=== PATIENT | male | born 1990 | race Caucasian/White ===

== ENCOUNTER 2021-10-07 12:31 | Emergency (ER) | payer SELFPAY ==
--- NOTE | ~2021-10-07 | XR_ITS ---
EXAMINATION: XR chest 2V DATE: 10/07/2021 13:04 INDICATION: New onset chest pain. TECHNIQUE: Frontal and lateral views of the chest were obtained. COMPARISON: None. FINDINGS: There are nodules in left lung measuring up to 15 mm. No pleural effusion or pneumothorax. The heart size is normal. Surgical clips overlie right chest. There is mild anterior wedging of T12 v ertebral body, likely chronic. IMPRESSION: 1. Nodules in left lung measuring up to 15 mm, which may be granulomatous disease or less likely meta static disease. Noncontrast chest CT is recommended. Reviewed, dictated and finalized at location [facility]. IMPRESSION: 1. Nodules in left lung measuring up to 15 mm, which may be granulomatous disea se or less likely metastatic disease. Noncontrast chest CT is recommended.
--- NOTE | ~2021-10-07 | CT_ITS ---
EXAMINATION: CT diagnostic chest wo con DATE: 10/07/2021 15:01 INDICATION: Left lung nodules measuring up to 15 mm TECHNIQUE: Computed tomography (CT) of the chest was performed without intravenous contrast. Automate d exposure control and iterative reconstruction technique were employed. Exam dose: 276.92 mGy-cm to clarisa exam DLP. COMPARISON: 10/07/2021 PA and lateral chest FINDINGS: Calcified left hilar and subcarinal lymph nodes are noted in addition to multiple bilateral calcified pulmonary granulomas, consistent with old pulmonary granulomatous disease. No suspicious pulmonary mass lesion. Postoperative change of the right lung. No pulmonary infiltrate or consolidation. Normal heart size. No pericardial or pleural effusion. No hilar or mediastinal mass lesion or lymphad enopathy. No thoracic aortic aneurysm. Included skeletal structures are unremarkable. 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 Reviewed, dictated and finalized at location [facility].
--- NOTE | ~2021-10-07 | US_ITS ---
US right upper quadrant DATE: 10/07/2021 14:43 INDICATION: Right upper quadrant abdominal pain TECHNIQUE: Real-time imaging of liver, gallbladder fossa, pancreas COMPARISON: None FINDINGS: The pancreatic head, neck and proximal body. Remainder of the pancreas is obscured. No hepatic space-occupying mass lesion is evident. Normal hepatopedal portal venous flow direction. The common bile duct measures 3 mm,. The gallbladder is not visualized. The patient believes he had a cholecystectomy. IMPRESSION: Limited visualization of pancreas Gallbladder is not utilized, likely due to cholecystectomy Reviewed, dictated and finalized at [facility]. Reviewed, dictated and finalized at location [facility].
[2021-10-07 12:35] VITALS: BP 163/94; PULSE 91; RESP 16; TEMP 37.2; O2SAT 97
--- NOTE | 2021-10-07 12:40 | ECG_ITS ---
Measurements Intervals [place] Rate: 88 P: 59 WA: 130 QRS: 69 QRSD: 78 T: 45 QT: 346 QTc: 420 Interpretive Statements SINUS RHYTHM BASELINE ARTIFACT NORMAL ECG NO PREVIOUS ECG AVAILABLE FOR COMPARISON Electronically Signed On 10-08-2021 11:15:55 CDT by Roshan Cortez M.D.
[2021-10-07 12:59] LABS: Basophils Absolute Auto 0.1 K/mm3 (0.0-0.1); Basophils Percent Auto 0.6 % (0.2-1.2); Eosinophils Absolute Auto 0.1 K/mm3 (0-0.3); Eosinophils Percent Auto 0.9 % (0-4.4); Hematocrit 50.9 % (42.0-52.0); Hemoglobin 17.8 g/dL (14.0-18.0); Immature Granulocyte Absolute 0.04 K/mm3 (0.00-0.031); Immature Granulocyte Percent A 0.3 % (0-0.5); Lymphocytes Absolute Auto 3.79 K/mm3 (0.9-3.2); Lymphocytes Percent Auto 27.1 % (18.3-44.2); Mean Corpuscular Hemoglobin 31.1 pg (26-34); Mean Platelet Volume 9.9 fl (7.4-10.4); Monocytes Absolute Auto 0.7 K/mm3 (0.1-0.6); Monocytes Percent Auto 4.8 % (2.6-8.5); Neutrophils Absolute Auto 9.3 K/mm3 (1.3-6.7); Neutrophils Percent Auto 66.3 % (45.5-73.1); Platelet Count Result 413 k/mm3 (150-375); Red Blood Count 5.72 M/mm3 (4.6-6.20); Red Cell Distribution Width 13.8 % (11.5-14.5)
[2021-10-07 13:11] LABS: Alanine Aminotransferase 30 U/L (6-50); Albumin Level 3.8 g/dL (3.5-5.1); Alkaline Phosphatase 68 U/L (38-126); Anion Gap 6 mmol/L (8-16); Aspartate Amino Transferase 28 U/L (17-59); Bilirubin,Total 0.6 mg/dL (0.2-1.3); Blood Urea Nitrogen 12 mg/dL (9-20); Calcium 8.2 mg/dL (8.4-10.2); Carbon Dioxide 24 mmol/L (22-30); Chloride 109 mmol/L (98-107); Estimated CRCL calculation 127 ml/min; Estimated Glomerular Filt Rate > 60; Glucose 168 mg/dL (65-110); Lipase 213 U/L (23-300); Potassium 3.4 mmol/L (3.4-5.0); Sodium 139 mmol/L (137-145)
[2021-10-07 13:21] LABS: INR 1.2; Prothrombin Time 14.6 Seconds (11.1-14.7); Troponin I < 0.012 ng/mL (0.000-0.034)
[2021-10-07 13:22] LABS: Partial Thromboplastin Time 27.8 SECONDS (22.3-36.8)
[2021-10-07 14:45] VITALS: PULSE 79; RESP 12; O2SAT 98
--- NOTE | 2021-10-07 14:45 | ED.GENADULT ---
HPI - General Adult General Chief complaint: Chest Pain Stated complaint: CP Time Seen by Provider: 10/07/21 13:27 History of Present Illness HPI narrative: Patient is a 31-year-old male who presents ER with right-sided chest pain. Is below his right pectoralis. It happens 3 times a day and last for 1 to 2 seconds. Occasionally radiates into his back. No known injury. No runny nose or sore throat or productive cough. Has history of lung nodule with biopsy on the right side that was benign 7 years ago. No exertional chest pain. No fevers chills or sweats. Has not taken any pain medication for this. Review of Systems Review of Systems: All systems reviewed & are unremarkable except as noted in HPI and below Constitutional: Constitutional: Denies chills and Denies fever(s) ENT: Denies nasal congestion and Denies sore throat Cardiovascular: Cardiovascular: Reports chest pain, Denies rapid heart rate and Denies radiating jaw, neck or arm pain Respiratory: Respiratory: Denies cough and Denies dyspnea Gastrointestinal: Gastrointestinal: Denies abdominal pain, Denies nausea and Denies vomiting Musculoskeletal: Musculoskeletal: Denies back pain and Denies arthralgias PMFSH Past Medical History Medical History (Updated 10/07/21 @ 16:30 by Rg Carrillo MD) Healthy adult male Surgical History Surgical History (Updated 10/07/21 @ 16:30 by Rg Carrillo MD) History of cholecystectomy History of lung biopsy Social History Social History (Updated 10/07/21 @ 16:30 by Rg Carrillo MD) Smoking status: Former smoker Smoking end date: 04/23/14 Exam Narrative: GENERAL: Well-appearing, well-nourished, and in no acute distress. HEAD: Normocephalic, atraumatic. EYES: PERRL and EOMI. CHEST: Clear to auscultation. No respiratory distress. HEART: Regular rate and rhythm. Normal peripheral pulses. ABDOMEN: Soft, nontender, nondistended. EXTREMITIES: Normal range of motion. No edema. SKIN: Warm, dry, no rash. NEURO:Alert and oriented x3. PSYCH: Normal mood and affect. Course Course Emergency Course: Troponin negative x2. Recommend Tylenol for pain. Discharge home. Vital Signs Vital signs: Vital Signs Temperature 98.9 F 10/07/21 12:35 Pulse Rate 91 10/07/21 12:35 Respiratory Rate 16 10/07/21 12:35 Blood Pressure 163/94 H 10/07/21 12:35 Pulse Oximetry 97 10/07/21 12:35 Oxygen Delivery Room Air 10/07/21 12:35 Temperature 98.9 F 10/07/21 12:35 Pulse Rate 91 10/07/21 12:35 Respiratory Rate 16 10/07/21 12:35 Blood Pressure 163/94 H 10/07/21 12:35 Pulse Oximetry 97 10/07/21 12:35 Oxygen Delivery Room Air 10/07/21 12:35 Medical Decision Making Vital Signs Vital Signs: Vital Signs Temperature 98.9 F 10/07/21 12:35 Pulse Rate 91 10/07/21 12:35 Respiratory Rate 16 10/07/21 12:35 Blood Pressure 163/94 H 10/07/21 12:35 Pulse Oximetry 97 10/07/21 12:35 Oxygen Delivery Room Air 10/07/21 12:35 Temperature 98.9 F 10/07/21 12:35 Pulse Rate 91 10/07/21 12:35 Respiratory Rate 16 10/07/21 12:35 Blood Pressure 163/94 H 10/07/21 12:35 Pulse Oximetry 97 10/07/21 12:35 Oxygen Delivery Room Air 10/07/21 12:35 Lab Data Result diagrams: 10/07/21 12:49 10/07/21 12:49 Labs: Lab Results 10/07/21 10/07/21 10/07/21 Range/Units 12:49 12:49 12:49 WBC 14.0 H (4.5-10.0) K/mm3 RBC 5.72 (4.6-6.20) M/mm3 Hgb 17.8 (14.0-18.0) g/dL Hct 50.9 (42.0-52.0) % MCV 89.0 (80-100) fl MCH 31.1 (26-34) pg MCHC 35.0 (32-36) g/dl RDW 13.8 (11.5-14.5) % Plt Count 413 H (150-375) k/mm3 MPV 9.9 (7.4-10.4) fl Immature Gran % (Auto) 0.3 (0-0.5) % Neut % (Auto) 66.3 (45.5-73.1) % Lymph % (Auto) 27.1 (18.3-44.2) % [place] % (Auto) 4.8 (2.6-8.5) % Eos % (Auto) 0.9 (0-4.4) % Baso % (Auto) 0.6 (0.2-1.2) % Lymph # (Auto) 3.79 H (0.9-
[2021-10-07 15:02] VITALS: PULSE 83; RESP 17; O2SAT 97
[2021-10-07 15:15] VITALS: PULSE 74; O2SAT 97
[2021-10-07 15:33] VITALS: PULSE 71; RESP 12; O2SAT 97
[2021-10-07 16:22] LABS: Troponin I < 0.012 ng/mL (0.000-0.034)
== END 2021-10-07 16:41 | disposition home or self-care (01) ==
PROVIDERS: Emergency Medicine; Emergency Provider Emergency Medicine
DX: R07.89 Other chest pain (principal); R91.1 Solitary pulmonary nodule; Z87.891 Personal history of nicotine dependence
CPT/HCPCS: 36415; 71046; 71250; 76705; 80053; 83690; 84484; 85025; 85610; 85730; 93005; 99284

== ENCOUNTER 2021-10-24 13:23 | Emergency (ER) | payer SELFPAY ==
--- NOTE | ~2021-10-24 | XR_ITS ---
EXAMINATION: XR chest 1V portable Exam Date/Time: 10/24/2021 13:50 CDT HISTORY: chest pain Comparison: 10/07/2021. RESULT: Lines, tubes, and devices: None. Lungs and pleura: Clear. Cardiomediastinal silhouette: Stable cardiomediastinal silhouette. Other: No acute osseous or upper abdominal finding. IMPRESSION: No acute cardiopulmonary process. Reviewed, dictated and finalized at location K.
--- NOTE | ~2021-10-24 | CT_ITS ---
EXAMINATION: CT abdomen pelvis w con DATE: 10/24/2021 15:04 INDICATION: epigastric pain elevated lipase TECHNIQUE: Computed tomography (CT) of the abdomen and pelvis was performed with 100 mL Omnipaque-300 intravenous contrast. Automated exposure control and iterative reconstruction technique were employe d. The dose-length product was 722.22 mGy-cm. COMPARISON: None. FINDINGS: Lower thorax: Right lower thorax surgical clips, suture material and/or embolization material, and mu ltiple large calcified granulomas. Liver: Normal. Biliary/Gallbladder: Gallbladder is absent. No bile duct dilation. Pancreas: No mass or duct dilation. Spleen: Normal. Adrenals:No mass. Kidneys: No mass, stone, or hydronephrosis. GI tract: No small or large bowel dilation. Appendix not visualized. Mesentery/Peritoneum: No ascites, mass, or free air. Retroperitoneum: No mass. Pelvis: Pelvic organs are within normal limits. Soft Tissues: Soft tissues and body wall unremarkable. Bones: No acute osseous finding. IMPRESSION: No acute abdominopelvic process detected. Reviewed, dictated and finalized at location K.
[2021-10-24 13:29] VITALS: BP 158/90; PULSE 88; RESP 20; TEMP 36.8; O2SAT 97
--- NOTE | 2021-10-24 13:33 | ECG_ITS ---
Measurements Intervals [place] Rate: 78 P: 44 HI: 142 QRS: 71 QRSD: 83 T: 38 QT: 372 QTc: 424 Interpretive Statements SINUS RHYTHM POSSIBLE LEFT ATRIAL ENLARGEMENT BASELINE ARTIFACT- I, III, AVR, AVL, AVF, V2 BORDERLINE ECG Electronically Signed On 10-24-2021 15:17:34 CDT by Rafael Chandler D.O.
--- NOTE | 2021-10-24 13:38 | ED.CHESTPAIN ---
HPI - Chest Pain General Chief Complaint: Chest Pain Stated Complaint: chest pain Time Seen by Provider: 10/24/21 13:29 History of Present Illness HPI narrative: pt here with recurrant chest pressure having constantly on/off for last 3 months says never goes away was here w/u neg has nodules old granulomatous disease ct given primary care f/u and hasn't called due to working during their hours, smokes occasionally/socially still having this with sharp episodes on/off no new f/uri/nvd says not associated with exertion or food and no daily meds no travel no calf pain/edema no meds tried for the pain Related Data Allergies Allergy/AdvReac Type Severity Reaction Status Date / Time No Known Allergies Allergy Verified 10/24/21 13:54 Review of Systems Constitutional: Comments: CONSTITUTIONAL: Denies fever, chills, has sweats at times. EYES: Denies visual changes, redness, or discharge. ENT: Denies rhinorrhea, congestion, sore throat, or otalgia. CARDIOVASCULAR: has chest pain, no palpitations, or edema. RESPIRATORY: Denies cough has dyspnea with the cp at times. GASTROINTESTINAL: Denies abdominal pain, nausea, vomiting, or diarrhea. GENITOURINARY: Denies dysuria or hematuria. SKIN: Denies rash or itching. MUSCULOSKELETAL: Denies back pain, joint pain, or myalgia. NEUROLOGIC: Denies headache, numbness, or weakness. PSYCHIATRIC: Denies anxiety or depression. [facility] Past Medical History Medical History (Updated 10/24/21 @ 15:49 by Elba Humphrey MD) Healthy adult male Surgical History Surgical History (Updated 10/07/21 @ 16:30 by Rg Carrillo MD) History of cholecystectomy History of lung biopsy Social History Social History (Updated 10/07/21 @ 16:30 by Rg Carrillo MD) Smoking status: Former smoker Smoking end date: 04/23/14 Exam Const: Other: APPEARANCE: Well appearing, no pain in distress, well-nourished. Head normocephalic atraumtaic. EYES: PERRLA/EOMI, conjunctivae very clear. NOSE: Normal no drainage EARS:TMS clear Emeka Simon, with good light reflex. THROAT: Pharynx clear, no exudate. NECK: Supple. No adenopathy, no masses. RESPIRATORY: Airway patent, repsirations nonlabored. Clear to auscultation bilaterally, no rales, rhonchi, wheezing. can't reproduce pain on palpation CARDIOVASCULAR: Regular rate and rhythm without murmurs rubs or gallops. ABDOMINAL: Soft, nontender, nondistended, no hepatosplenomegally MUSCULOSKELETAl: Moves all extremities. Strenght/ROM intact, No edema, No calf tenderness. NEURO: Alert. Cranial nerves II through XII intact. Good gait. Good coordination SKIN:: Warm,. Normal Color clamy PSYCHIATRIC: has flatish affect and seems slightly anxious normal interaction with parents. Course Course Emergency Course: updated pt at 1546 and stressed again needing to f/u primary will give oncall today pt fine, on cell phone no sweating after meds good with plan doenst' smoke weed at all he says Vital Signs Vital signs: Vital Signs Temperature 36.8 C 10/24/21 13:29 Pulse Rate 88 10/24/21 13:29 Respiratory Rate 20 10/24/21 13:29 Blood Pressure 158/90 H 10/24/21 13:29 Pulse Oximetry 97 10/24/21 13:29 Oxygen Delivery Room Air 10/24/21 13:29 Temperature 36.8 C 10/24/21 13:29 Pulse Rate 88 10/24/21 13:29 Respiratory Rate 20 10/24/21 13:29 Blood Pressure 158/90 H 10/24/21 13:29 Pulse Oximetry 97 10/24/21 13:29 Oxygen Delivery Room Air 10/24/21 13:29 MDM - Chest Pain Lab Data Result diagrams: 10/24/21 13:41 10/24/21 13:41 Labs: Lab Results 10/24/21 10/24/21 10/24/21 Range/Units 13:41 13:41 13:41 WBC 10.0 (4.5-10.0) K/mm3 RBC 5.21 (4.6-6.20) M/mm3 Hgb 16.3 (14.0-18.0) g/dL Hct 46.9 (42.0-52.0) % MCV 90.0 (80-100) fl MCH 31.3 (26-34) pg MCHC 34.8 (32-36) g/dl RDW 14.0 (11.5-14.5) % Plt Count 328 (150-375) k/mm3 MPV 10.0 (7.4-10.4) fl Immature G
[2021-10-24] MEDS: ASPIRIN 81 MG CHEWABLE TABLET 324 MG PO (13:51)
[2021-10-24] MEDS: diphenhydrAMINE HCl INJ 50 MG/ML VIAL IV PUSH (13:51)
[2021-10-24 13:54] LABS: Basophils Absolute Auto 0.1 K/mm3 (0.0-0.1); Basophils Percent Auto 1.2 % (0.2-1.2); Eosinophils Absolute Auto 0.3 K/mm3 (0-0.3); Eosinophils Percent Auto 2.5 % (0-4.4); Hematocrit 46.9 % (42.0-52.0); Hemoglobin 16.3 g/dL (14.0-18.0); Immature Granulocyte Absolute 0.05 K/mm3 (0.00-0.031); Immature Granulocyte Percent A 0.5 % (0-0.5); Lymphocytes Absolute Auto 3.42 K/mm3 (0.9-3.2); Lymphocytes Percent Auto 34.3 % (18.3-44.2); Mean Corpuscular HGB Conc 34.8 g/dl (32-36); Mean Corpuscular Hemoglobin 31.3 pg (26-34); Monocytes Absolute Auto 0.6 K/mm3 (0.1-0.6); Monocytes Percent Auto 6.1 % (2.6-8.5); Neutrophils Absolute Auto 5.5 K/mm3 (1.3-6.7); Neutrophils Percent Auto 55.4 % (45.5-73.1); Platelet Count Result 328 k/mm3 (150-375); Red Blood Count 5.21 M/mm3 (4.6-6.20)
[2021-10-24 14:05] LABS: Alanine Aminotransferase 42 U/L (6-50); Alkaline Phosphatase 65 U/L (38-126); Anion Gap 6 mmol/L (8-16); Aspartate Amino Transferase 36 U/L (17-59); Bilirubin,Total 0.2 mg/dL (0.2-1.3); Blood Urea Nitrogen 9 mg/dL (9-20); Calcium 8.9 mg/dL (8.4-10.2); Carbon Dioxide 25 mmol/L (22-30); Chloride 107 mmol/L (98-107); Estimated CRCL calculation 117 ml/min; Estimated Glomerular Filt Rate > 60; Glucose 108 mg/dL (65-110); Lipase 650 U/L (23-300); Magnesium 2.1 mg/dL (1.6-2.3); Prothrombin Time 12.8 Seconds (11.1-14.7); Sodium 138 mmol/L (137-145)
[2021-10-24 14:06] LABS: Partial Thromboplastin Time 24.7 SECONDS (22.3-36.8)
[2021-10-24 14:12] LABS: D Dimer < 0.27 ug/mL (<0.48)
[2021-10-24 14:15] LABS: NT Pro B Type Natriuretic Pept 72 pg/mL (5-100); Troponin I < 0.012 ng/mL (0.000-0.034)
[2021-10-24] MEDS: FAMOTIDINE 20 MG/2 ML VIAL IV PUSH (14:15)
[2021-10-24] MEDS: KETOROLAC 30 MG/ML VIAL (*BKC) IV PUSH (14:17)
[2021-10-24 14:39] LABS: Creatine Kinase 45 U/L (55-170)
[2021-10-24 14:42] LABS: Ethanol < 10 mg/dL (<10)
== END 2021-10-24 15:58 | disposition home or self-care (01) ==
PROVIDERS: Emergency Provider Emergency Medicine
DX: R07.89 Other chest pain (principal); Z87.891 Personal history of nicotine dependence
CPT/HCPCS: 36415; 71045; 74177; 80053; 80307; 82550; 83690; 83735; 83880; 84443; 84484; 85025; 85380; 85610; 85730; 93005; 96374; 96375; 99284; A9270; J1200; J1885; Q9967